=== PATIENT | male | born 2005 | race Caucasian/White ===

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

== ENCOUNTER → 2023-06-10 13:45 | Outpatient (BNVA) | payer OTHER, SELFPAY | PROVIDERS: Visit Provider Physician Assistant | DX: S61.213A Laceration without foreign body of left middle finger without damage to nail, initial encounter (principal); W31.89XA Contact with other specified machinery, initial encounter | CPT/HCPCS: 12001; 99204 ==

== ENCOUNTER → 2023-06-14 10:49 | Outpatient (BNVA) | payer OTHER, SELFPAY | PROVIDERS: Visit Provider Physician Assistant Medical | DX: S61.213A Laceration without foreign body of left middle finger without damage to nail, initial encounter (principal); W26.9XXA Contact with unspecified sharp object(s), initial encounter | CPT/HCPCS: 99213 ==

== ENCOUNTER → 2023-06-21 14:44 | Outpatient (BNVA) | payer OTHER, SELFPAY | PROVIDERS: Visit Provider Physician Assistant Medical | DX: S61.213A Laceration without foreign body of left middle finger without damage to nail, initial encounter (principal); W31.89XA Contact with other specified machinery, initial encounter | CPT/HCPCS: 99213 ==

== ENCOUNTER 2023-06-26 07:58 | Emergency (ER) | payer OTHER, SELFPAY ==
[2023-06-26 08:12] VITALS: BP 125/73; PULSE 100; RESP 18; TEMP 36.9; O2SAT 97; BMI 30.7
--- NOTE | 2023-06-26 08:22 | ED.NAVMDI ---
HPI - Nausea/Vomiting/Diarrhea General Chief complaint: Nausea/Vomiting/Diarrhea Stated complaint: vomiting diarrhea Time Seen by Provider: 06/26/23 08:12 Source: patient Mode of arrival: ambulatory History of Present Illness HPI Narrative: 18-year-old male who presents with onset diarrhea, nausea, vomiting without fever or chills and denies sick contacts. Patient does report having eaten a salad with chicken from a pizza place. since last night. no fever/chills, sick contacts....no abd pain, sounds congested. Related Data Previous Rx's Medication Instructions Recorded ondansetron 4 mg disintegrating 4 mg PO Q6H PRN nausea and 08/25/21 tablet vomiting #10 tabs cyclobenzaprine 5 mg tablet 5 mg PO TID PRN neck pain 7 days 02/13/22 #21 tabs amoxicillin 875 mg-potassium 1 tab PO BID #20 tabs 08/23/22 clavulanate 125 mg tablet ondansetron 4 mg disintegrating 4 mg PO Q8H PRN nausea and 06/26/23 tablet vomiting 4 days #10 tabs Allergies Allergy/AdvReac Type Severity Reaction Status Date / Time peanut [PEANUT] Allergy Unknown UNK Verified 03/18/22 08:31 SEAFOOD Allergy Unknown UNK Uncoded 02/22/20 17:08 SEASONAL ALLERGIES Allergy Unknown RUNNY NOSE Uncoded 02/22/20 17:08 Review of Systems Review of Systems: Pertinent positives and negatives as stated in HPI PMFSH Past Medical History Source: nursing notes reviewed Onset Date is defined in the Problem List Problems that require an onset date and time if occurred within 24 hrs of arrival to the ED Aortic Dissection and Rupture; Neurologic impairment; Cardiopulmonary Arrest; Endotracheal Intubation; Insertion or Replacement of Mechanical Circulatory Assist Device Social History Social History Alcohol intake: never Patient Tobacco Use Status: Never used Tobacco Smoked in Last 30 Days: No Use of substances other than those prescribed or required for medical reasons: No Substance Use Type: Marijuana Advance Directives: No Advance Directives Information Provided: No Physical Exam Vital Signs: Vital Signs: Last Vital Signs Temp 98.4 F 06/26/23 08:12 Pulse 100 06/26/23 08:12 Resp 18 06/26/23 08:12 BP 125/73 06/26/23 08:12 Pulse Ox 97 06/26/23 08:12 O2 Del Method Room Air 06/26/23 08:12 BMI result Body Mass Index 30.7 VITAL SIGNS: Reviewed. GENERAL: Well developed, well nourished, in no acute distress. HEAD: Normocephalic/atraumatic EYES: PERRLA, EOMI EARS: Ext canals without abnormality, TMs non-bulging and non-erythematous NOSE: Nares congestion with rhinorrhea OROPHARYNX: no oral lesions noted, posterior pharynx clear and non-erythematous without noted tonsillar enlargement/erythema/exudates NECK: Supple, no adenopathy LUNGS: Normal breath sounds. No adventitious sounds or accessory muscle use. SpO2<97> CARDIOVASCULAR: Regular rate and rhythm without noted murmurs ABDOMEN: Soft, non-tender, non-distended with bowel sounds. MUSCULOSKELETAL: No tenderness, deformities, or effusions noted on gross inspection. EXTREMITIES: No cyanosis, clubbing or edema. SKIN: Inspection of the skin reveals no rashes NEUROLOGIC: Alert and oriented x 4. Strength and sensation to light touch were grossly intact x 4. Medications Administered Discontinued Medications Generic Name Dose Route Start Last Admin Trade Name Freq PRN Reason Stop Dose Admin Ondansetron HCl 4 mg 06/26/23 08:21 06/26/23 09:07 Ondansetron Odt 4 Mg Tab.Rapdis TRANSLINGU 06/26/23 08:22 4 mg ONCE ONE Administration Medical Decision Making Medical Decision Making [facility] Narrative: 18-year-old male with history and clinical presentation, DDX: Gastroenteritis, food poisoning, no clinical suspicion for intra-abdominal infection as abdominal exam is benign, doubt urinary etiology. Patient received trans lingual Zofran with good effect and is currently tolerating oral intake, mildly feeling better and has had no further episodes of diarrhea that we would be able to send for testing. He is otherwise discharged home with instructions to follow-up with his primary care doctor and a prescription for antiemetics. Viral testing is negative. Differential Diagnosis Differential Diagnoses: The differential diagnosis associated with the presentation includes Please see the discussion above Admission/Observation Consideration of admission/observation: Escalation of care including admission/observation considered Please see the discussion above Lab Data [facility] Lab Attestation statement: I reviewed the patient's lab results. Please see the discussion above Labs: Lab Results 06/26/23 Range/Units 08:17 COVID-19 ([facility]ZEL) Negative (Negative) COVID-19 Clin Com See Note External Record Review External record reviewed: Outpatient record and Prior outpatient labs Discharge Plan Discharge Clinical Impression: Gastroenteritis Patient Disposition: Home, Self-Care Instructions: Gastroenteritis (ED), Nutrition Tips for Relief of Diarrhea (ED) Additional Instructions: 1. Use the antinausea medication to help stay well hydrated, stick to a bland diet and avoid carbonated/caffeinated/spicy or fatty foods. 2. Follow-up with your primary care doctor. Return to the ER for any worsening symptoms. Prescriptions: New ondansetron 4 mg tablet,disintegrating 4 mg PO Q8H PRN (Reason: nausea and vomiting) 4 Days Qty: 10 0RF No Action ondansetron 4 mg tablet,disintegrating 4 mg PO Q6H PRN (Reason: nausea and vomiting) Qty: 10 0RF cyclobenzaprine 5 mg tablet 5 mg PO TID PRN (Reason: neck pain) 7 Days Qty: 21 0RF amoxicillin-pot clavulanate 875-125 mg tablet 1 tab PO BID Qty: 20 0RF Referrals: Jazmyn Saunders MD [Primary Care Provider] -
[2023-06-26 08:47] LABS: COVID-19 Test Negative (Negative); IDNOW Serial# 08D9AD1C
[2023-06-26] MEDS: Ondansetron ODT 4 MG TAB.RAPDIS TRANSLINGU (09:07)
== END 2023-06-26 09:36 | disposition home or self-care (01) ==
PROVIDERS: Emergency Provider Student in an Organized Health Care Education/Training Program; PCP Pediatrics
DX: K52.9 Noninfective gastroenteritis and colitis, unspecified (principal); R11.2 Nausea with vomiting, unspecified; Z11.52 Encounter for screening for COVID-19
CPT/HCPCS: 87635; 99283; 99284

== ENCOUNTER 2023-10-11 19:37 | Emergency (ER) | payer OTHER, SELFPAY ==
--- NOTE | ~2023-10-11 | CT_ITS ---
EXAMINATION: CT HEAD WITHOUT CONTRAST CLINICAL INFORMATION: Dizziness, headache COMPARISON: None available. TECHNIQUE: Contiguous axial imaging was performed from the skull base to vertex without intravenous administration of contrast. This CT examination was performed using dose optimization techniques as appropriate, variously including the following: *Automated exposure control *Adjustment of mA and/or kV according to patient size (this includes techniques or standardized protocols for targeted exams where dose is matched to indication/reason for exam; i.e. extremities or head) *Use of iterative reconstruction technique DLP: 688 mGy-cm FINDINGS: There is no evidence of acute intracranial hemorrhage or territorial infarction. No abnormal mass-effect or midline shift is seen. Hu to white matter differentiation is well preserved. No extra-axial fluid collections are identified. The ventricles are normal in size. There is no abnormal attenuation within the brain parenchyma. The osseous structures and soft tissues are normal. Small right maxillary mucus retention cyst. The mastoid air cells are well-aerated. CT/CT head/brain wo IV con IMPRESSION: No acute intracranial pathology.
[2023-10-11 20:11] VITALS: BP 124/63; PULSE 81; RESP 14; TEMP 36.6; O2SAT 98; BMI 31.5
--- NOTE | 2023-10-11 20:13 | ED.GENADULT ---
HPI - General Adult General Chief complaint: Dizziness Stated complaint: congested lightheaded Time Seen by Provider: 10/12/23 02:05 Source: patient Mode of arrival: ambulatory Limitations: no limitations History of Present Illness HPI narrative: 18 yo male with PMH of allergies here with c/o headache, dizziness on and off for one week - no trauma no neck pain no fevers. He notes he is congested but thinks it is due to his allergies. He denies CP/SOB, no travel or procedures MD complaint: headaches, dizziness Onset (ago): day(s) (7) Location: head Radiation: non-radiation Severity: moderate Quality: aching and dull Pain Consistency: intermittent Relieving factors: none Exacerbating factors: none Associated symptoms: other (nasal congestion, dizziness) Treatments prior to arrival: none Related Data Previous Rx's ?Medication ?Instructions ?Recorded ondansetron 4 mg disintegrating 4 mg PO Q6H PRN nausea and 08/25/21 tablet vomiting #10 tabs cyclobenzaprine 5 mg tablet 5 mg PO TID PRN neck pain 7 days 02/13/22 #21 tabs amoxicillin 875 mg-potassium 1 tab PO BID #20 tabs 08/23/22 clavulanate 125 mg tablet ondansetron 4 mg disintegrating 4 mg PO Q8H PRN nausea and 06/26/23 tablet vomiting 4 days #10 tabs Allergies Allergy/AdvReac Type Severity Reaction Status Date / Time peanut [PEANUT] Allergy Unknown UNK Verified 10/11/23 20:12 SEAFOOD Allergy Unknown UNK Uncoded 10/11/23 20:12 SEASONAL ALLERGIES Allergy Unknown RUNNY NOSE Uncoded 10/11/23 20:12 Review of Systems Review of Systems: Constitutional : No Fever, No Chills, No Fatigue ENT/Mouth : No sore throat, No Rhinorrhea, pos sinus pain Eyes: No Eye Pain, No Swelling, No Redness Cardiovascular : No Chest Pain, No SOB, No Dyspnea on Exertion Respiratory : No Cough, No Sputum Gastrointestinal : No Nausea, No Vomiting, No Diarrhea, No abdominal Pain Genitourinary : No Dysuria, No Urinary Frequency, No Hematuria, Musculoskeletal : No joint pain, No Myalgias, No Joint Swelling Skin : No Skin Lesions, No rash Neuro : No Weakness, No Numbness, pos Dizziness, positive Headache Psych : No Anxiety/Panic, No Depression All other systems reviewed and are negative [facility] Past Medical History Attestation statement: The following information was validated with the patient. Source: old records reviewed Medical History Allergies Social History Social History Alcohol intake: never Patient Tobacco Use Status: Never used Tobacco Smoked in Last 30 Days: No Use of substances other than those prescribed or required for medical reasons: No Substance Use Type: Marijuana Advance Directives: No Advance Directives Information Provided: No Do you have a plan to hurt others: No Plan Physical Exam ED Vital Signs: Vital Signs - 24 hr 10/11/23 20:11 10/12/23 03:00 Temperature 97.9 F 98.6 F Pulse Rate 81 71 Respiratory Rate 14 16 Blood Pressure 124/63 124/62 Pulse Oximetry 98 98 Oxygen Delivery Method Room Air Room Air BMI result Body Mass Index 31.5 Appearance: Alert. Oriented X3. No acute distress. Eyes: Pupils equal, round and reactive to light. ENT: Pharynx normal. mild facial ttp normal TMs bilaterally Neck: Normal inspection. Neck supple. no meningeal signs CVS: Normal heart rate and rhythm. Pulses normal. Respiratory: No respiratory distress. Breath sounds normal. Abdomen: Soft and nontender. Skin: Skin warm and dry. Normal skin color. Normal skin turgor. Extremities: No lower extremity edema. No calf ttp Neuro: Oriented X 3. No motor deficit. No sensory deficit. steady gait no ataxia Course Course Course Narrative: RME performed by Loli Connelly PA-C. Patient is a 18 year old assigned male at presenting to the emergency department with dizziness, lightheadedness, and a headache. Detailed physical exam and review of systems are deferred to the incinerator plant laborer. Labs and swabs ordered. Patient placed back in the waiting room pending room availability and results. Reevaluation(s) Reevaluation #1: 227am troponin ordered but no EKG - came back positive had no CP/SOB EKG ordered and repeat troponin placed as well clinically doesn't make sense EKG normal infl markers negative drastic drop in repeat trop I suspect the 1st trop was in error I am calling the lab Reevaluation #2: lab repeated the original blood in analyzer and it came back at less than 2.7 and so they state it was analyzer error Medications Administered Discontinued Medications Generic Name Dose Route Start Last Admin Trade Name Nicky PRN Reason Stop Dose Admin Acetaminophen 650 mg 10/12/23 02:12 10/12/23 02:39 Acetaminophen 325 Mg Tablet PO 10/12/23 02:13 650 mg ONCE ONE Administration Meclizine HCl 25 mg 10/12/23 02:12 10/12/23 02:39 Meclizine Hcl 25 Mg Tablet PO 10/12/23 02:13 25 mg ONCE ONE Administration Medical Decision Making Medical Decision Making [facility] Narrative: 18 yo male with PMH of allergies here with c/o sinus congestion but also now has headaches and intermittent dizziness no neck pain no fevers, normal neuro exam no ataxia he will get labs, swabs, CT head for mass/deep sinus infection Differential Diagnosis Differential Diagnoses: The differential diagnosis associated with the presentation includes tension headache, vertigo, sinusitis Admission/Observation Consideration of admission/observation: Escalation of care including admission/observation considered work up negative trop flat x 2 CT head negative no ataxia Lab Data [facility] Lab Attestation statement: I reviewed the patient's lab results. 10/11/23 20:24 10/11/23 20:24 Labs: Lab Results 10/11/23 10/12/23 10/12/23 Range/Units 20:24 01:05 02:45 WBC 9.7 (4.8-10.8) X10*3/uL RBC 5.05 (4.60-5.80) X10*6/uL Hgb 15.3 (14.0-18.0) g/dl Hct 42.8 (42.0-52.0) % MCV 84.8 (80.0-98.0) fL MCH 30.3 (27.0-33.0) pg MCHC 35.7 (31.0-36.0) g/dl RDW 11.9 (11.0-16.0) % Plt Count 251 (160-400) X10*3/uL MPV 9.3 L (9.4-12.4) fL Immature Gran % (Auto) 0.2 (0.0-0.4) % Neut % (Auto) 53.5 (45-73) % Lymph % (Auto) 23.0 (20-40) % [place] % (Auto) 7.6 (2-11) % Eos % (Auto) 15.0 H (0-4) % Baso % (Auto) 0.7 (0-2) % Lymph # (Auto) 2.2 (1.2-4.9) X10*3/uL [place] # (Auto) 0.7 (0.1-1.2) X10*3/uL Eos # (Auto) 1.5 H (0.0-0.4) X10*3/uL Baso # (Auto) 0.1 (0.0-0.2) X10*3/uL Abs Immat Gran (auto) 0.02 (0.00-0.03) X10*3/uL Absolute Neuts (auto) 5.2 (2.0-8.3) x10*3/uL Absolute Nucleated RBC 0.000 (0.0-0.012) X10*3/uL Nucleated RBC % (auto) 0.0 (0.0-0.2) /100WBC ESR 2 (0-15) MM/HR Sodium 143 (135-145) mmol/L Potassium 3.6 (3.3-5.1) mmol/L Chloride 108 (96-108) mmol/L Carbon Dioxide 26 (22-29) mmol/L Anion Gap 13 (12-20) BUN 10 (9-16) mg/dL Creatinine 0.99 (0.5-1.4) mg/dL Estim Creat Clear Calc 136.6 Estimated GFR > 60 Random Glucose 95 (60-115) mg/dL Calcium 9.9 (8.4-10.2) mg/dL Magnesium 2.2 (1.6-2.6) mg/dL Total Bilirubin 0.7 (0.0-1.0) mg/dL AST 21 (5-37) U/L ALT 31 (0-40) U/L Alkaline Phosphatase 69 (39-117) U/L Troponin I High Sens < 2.7 < 2.7 (<3.5-35.0) ng/L C-Reactive Protein < 0.10 (< or = 0.50) mg/dL Total Protein 7.9 (6.5-8.0) g/dL Albumin 4.3 (3.5-5.0) g/dL Influenza Type A (PCR) NEGATIVE (Negative) Influenza Type B (PCR) NEGATIVE (Negative) RSV RNA Qual (PCR) NEGATIVE (Negative) SARS-CoV-2 RNA (RT-PCR) NEGATIVE (Negative) S. pyogenes GrpA JOSHUA Negative (Negative) Independent Interpretation I performed an independent interpretation of an: EKG and CT Scan (normal ) Interpretation: Rate: 68 Rhythm: NSR [place]: normal Normal P waves. Normal ALEXIS. Normal QRS complex. ST T wave : inverted t wave V1, no KHALIDA qTC: 404 prior studies: no acute ischemia The study has been interpreted contemporaneously by me. . Radiology Impression Discussion of test interpretation with radiology: I have reviewed the radiologist's reading. Independent Historian Clinical information obtained from an independent historian. History obtained from or confirmed by: Spouse Prescription Management I considered prescription management with: Antibiotic Discharge Plan Discharge Clinical Impression: Dizziness Patient Disposition: Home, Self-Care Instructions: Dizziness (ED) Additional Instructions: ekg normal heart markers normal x 2 CT head normal follow up with your doctor stay hydrated. return for any worsening symptoms or concerns. Prescriptions: No Action ondansetron 4 mg tablet,disintegrating 4 mg PO Q6H PRN (Reason: nausea and vomiting) Qty: 10 0RF cyclobenzaprine 5 mg tablet 5 mg PO TID PRN (Reason: neck pain) 7 Days Qty: 21 0RF amoxicillin-pot clavulanate 875-125 mg tablet 1 tab PO BID Qty: 20 0RF ondansetron 4 mg tablet,disintegrating 4 mg PO Q8H PRN (Reason: nausea and vomiting) 4 Days Qty: 10 0RF Stand Alone Forms: Work/School Release Print Language: Filipino
[2023-10-11 20:37] LABS: MANUAL DIFF FLAG NO
[2023-10-11 20:38] LABS: Basophils Absolute Auto 0.1 X10*3/uL (0.0-0.2); Basophils Percent Auto 0.7 % (0-2); Eosinophils Absolute Auto 1.5 X10*3/uL (0.0-0.4); Hematocrit 42.8 % (42.0-52.0); Hemoglobin 15.3 g/dl (14.0-18.0); Imm Gran Abs Auto 0.02 X10*3/uL (0.00-0.03); Imm Gran Pct Auto 0.2 % (0.0-0.4); Lymphocytes Absolute Auto 2.2 X10*3/uL (1.2-4.9); Mean Corpuscular HGB Conc 35.7 g/dl (31.0-36.0); Mean Corpuscular Hemoglobin 30.3 pg (27.0-33.0); Mean Corpuscular Volume 84.8 fL (80.0-98.0); Mean Platelet Volume 9.3 fL (9.4-12.4); Monocytes Absolute Auto 0.7 X10*3/uL (0.1-1.2); Monocytes Percent Auto 7.6 % (2-11); Neutrophils Absolute Auto 5.2 x10*3/uL (2.0-8.3); Neutrophils Percent Auto 53.5 % (45-73); Platelet Count 251 X10*3/uL (160-400); Red Blood Count 5.05 X10*6/uL (4.60-5.80); Red Cell Distribution Width 11.9 % (11.0-16.0); White Blood Count 9.7 X10*3/uL (4.8-10.8)
[2023-10-11 20:53] LABS: Alanine Aminotransferase 31 U/L (0-40); Albumin Level 4.3 g/dL (3.5-5.0); Alkaline Phosphatase 69 U/L (39-117); Anion Gap 13 (12-20); Aspartate Amino Transferase 21 U/L (5-37); Bilirubin Total 0.7 mg/dL (0.0-1.0); Blood Urea Nitrogen 10 mg/dL (9-16); Calcium 9.9 mg/dL (8.4-10.2); Carbon Dioxide 26 mmol/L (22-29); Chloride 108 mmol/L (96-108); Creatinine Clr Calc Pharmacy 136.6; Estimated Glomerular Filt Rate > 60; Glucose Random 95 mg/dL (60-115); Magnesium 2.2 mg/dL (1.6-2.6); Potassium 3.6 mmol/L (3.3-5.1); Sodium 143 mmol/L (135-145); Total Protein 7.9 g/dL (6.5-8.0)
[2023-10-11 21:15] LABS: Influenza A PCR NEGATIVE (Negative); Influenza B PCR NEGATIVE (Negative); Resp Syncy Virus RNA Qual PCR NEGATIVE (Negative); SARS COV2 PCR INHOUSE NEGATIVE (Negative)
[2023-10-12 01:31] LABS: IDNOW Serial# 08D9AD1C; Strep A Nucleic Acid Negative (Negative)
--- NOTE | 2023-10-12 02:25 | ECG_ITS ---
Test Reason : DIZZINESS Blood Pressure : / mmHG Vent. Rate : 068 BPM Atrial Rate : 068 BPM P-R Int : 134 ms QRS Dur : 114 ms QT Int : 380 ms P-R-T Axes : 051 024 019 degrees QTc Int : 404 ms Normal sinus rhythm Normal ECG When compared with ECG of 25-AUG-2021 01:37, Vent. rate has decreased BY 33 BPM Referred By: Leigha Meza Electronically Signed By:Theodore Xie
[2023-10-12] MEDS: Meclizine HCl 25 MG TABLET PO (02:39)
[2023-10-12] MEDS: Acetaminophen 325 MG TABLET 650 MG PO (02:39)
[2023-10-12 02:48] LABS: C Reactive Protein < 0.10 mg/dL (< or = 0.50)
[2023-10-12 03:00] VITALS: BP 124/62; PULSE 71; RESP 16; TEMP 37; O2SAT 98
[2023-10-12 03:09] LABS: Erythrocyte Sedimentation Rate 2 MM/HR (0-15)
[2023-10-12 03:13] LABS: Troponin-I High Sensitivity < 2.7 ng/L (<3.5-35.0)
[2023-10-12 03:59] LABS: Troponin-I High Sensitivity < 2.7 ng/L (<3.5-35.0)
[2023-10-12 04:59] VITALS: BP 110/66; PULSE 67; RESP 14; TEMP 36.8; O2SAT 99
== END 2023-10-12 05:00 | disposition home or self-care (01) ==
PROVIDERS: Emergency Medicine; Physician Assistant Medical; Emergency Provider Emergency Medicine; PCP Pediatrics
DX: R42 Dizziness and giddiness (principal); R51.9 Headache, unspecified; Z03.818 Encounter for observation for suspected exposure to other biological agents ruled out
CPT/HCPCS: 0241U; 36415; 70450; 80053; 83735; 84484; 85025; 85652; 86140; 87651; 93005; 99284; 99285

== ENCOUNTER → 2023-10-12 02:25 | Outpatient (BNV) | payer OTHER, SELFPAY | PROVIDERS: Emergency Provider Emergency Medicine; PCP Pediatrics; Visit Provider Internal Medicine Cardiovascular Disease | DX: R42 Dizziness and giddiness (principal) | CPT/HCPCS: 93010 ==

== ENCOUNTER 2024-06-05 07:43 | Emergency (ER) | payer OTHER, SELFPAY ==
[2024-06-05 07:45] VITALS: BP 125/74; PULSE 94; RESP 20; TEMP 37.5; O2SAT 95; BMI 31.9
--- NOTE | 2024-06-05 08:57 | PC.NURSE ---
patient a&ox3, rr equal/non labored- pt speaking in full sentences, swab obtaine, plan of care ongoing
[2024-06-05 09:14] LABS: Influenza A PCR NEGATIVE (Negative); Influenza B PCR NEGATIVE (Negative); Resp Syncy Virus RNA Qual PCR NEGATIVE (Negative); SARS COV2 PCR INHOUSE POSITIVE (Negative)
[2024-06-05 09:26] LABS: IDNOW Serial# 58CA691E; Strep A Nucleic Acid Negative (Negative)
--- NOTE | 2024-06-05 09:40 | ED_ITS ---
HPI - URI/Sore Throat General Chief Complaint: Upper Respiratory Symptoms Stated Complaint: Headache Bodyache Time Seen by Provider: 06/05/24 09:12 Source: patient Mode of arrival: ambulatory Limitations: no limitations History of Present Illness ED Provider: fabiola horn pa-c HPI Narrative: 19 year old male with no significant pmhx presents to the ED today for evaluation of headache, myalgias, and nasal congestion x2 days. He states he was recently in [place] with family for the holiday staying in a hotel. Denies any known sick contacts. Vaccinations are UTD. Denies fever, chills, sore throat, cough, sputum production, N/V, abd pain. Related Data Previous Rx's ?Medication ?Instructions ?Recorded ondansetron 4 mg disintegrating 4 mg PO Q6H PRN nausea and 08/25/21 tablet vomiting #10 tabs cyclobenzaprine 5 mg tablet 5 mg PO TID PRN neck pain 7 days 02/13/22 #21 tabs amoxicillin 875 mg-potassium 1 tab PO BID #20 tabs 08/23/22 clavulanate 125 mg tablet ondansetron 4 mg disintegrating 4 mg PO Q8H PRN nausea and 06/26/23 tablet vomiting 4 days #10 tabs Allergies Allergy/AdvReac Type Severity Reaction Status Date / Time peanut [PEANUT] Allergy Unknown UNK Verified 06/05/24 07:45 SEAFOOD Allergy Unknown UNK Uncoded 06/05/24 07:45 SEASONAL ALLERGIES Allergy Unknown RUNNY NOSE Uncoded 06/05/24 07:45 Review of Systems Review of Systems: Constitutional: No fever, chills, fatigue, night sweats, weight changes ENT/Mouth: No ear pain, hearing loss, sinus pain, rhinorrhea, sore throat, +nasal congestion Eyes: No eye pain, swelling, redness, vision changes, discharge Cardio: No chest pain, palpitations, SINGLETON, orthopnea, peripheral edema Pulm: No SOB, cough, sputum, wheezing, dyspnea, hemoptysis, cough GI: No nausea, vomiting, hematemesis, abdominal pain, diarrhea, constipation, hematochezia, melena : No irregular bleeding, dysuria, frequency, urgency, hesitancy, hematuria, flank pain, urinary flow changes, urinary incontinence or retention MSK: No back pain, neck pain, joint pain, +myalgias Skin: No lesions, rashes Neuro: No weakness, numbness, paresthesias, LOC, dizziness, +headache Psych: No anxiety/panic, depression, SI/HI, AH/VH All other systems reviewed and are negative. [facility] Past Medical History Attestation statement: The following information was validated with the patient. Source: old records reviewed and nursing notes reviewed Medical History Allergies Social History Social History Alcohol intake: never Patient Tobacco Use Status: Never used Tobacco Substance Use Type: Marijuana Advance Directives: No Advance Directives Information Provided: Yes Physical Exam Vital Signs: Vital Signs: Last Vital Signs Temp 99.5 F 06/05/24 07:45 Pulse 94 06/05/24 07:45 Resp 20 06/05/24 07:45 BP 125/74 06/05/24 07:45 Pulse Ox 95 06/05/24 07:45 O2 Del Method Room Air 06/05/24 07:45 BMI result Body Mass Index 31.9 vital signs stable, afebrile, not hypoxic General: Well appearing, in no acute distress. Skin: Warm, dry, intact. No rashes or lesions. Head: Normocephalic, atraumatic. EENT: Hearing is intact b/l. Conjunctiva clear. PERRLA. EOM intact. Moist mucous membranes.? Posterior oropharynx WNL Neck: Supple without LAD Cardiac: Chest wall symmetric. RRR Lungs: Normal respiratory effort without accessory muscle use. CTA bilaterally. No rales, rhonchi, or wheezes.? Abdomen: Soft, non-tender, non-distended. No rebound tenderness or guarding. Positive BS x4. Back: No midline spinous or paraspinal tenderness. No step off deformity. Ext: Upper and lower extremities atraumatic, without tenderness, deformity, swelling or erythema. Full ROM throughout. Neuro: AOx3. Normal speech. Ambulating with steady gait. Psych: Appropriate mood and affect. Responds appropriately to questions. Course Course Course Narrative: Patient tested positive for COVID. Educated on symptomatic treatment. He was given Toradol for headache and body aches in the ED. Patient has remained stable throughout ED visit today. Discussed worrisome signs and symptoms and when to return to the ED. All questions answered at this time. Patient is agreeable with disposition and stable for discharge. Medical Decision Making Medical Decision Making [facility] Narrative: 19 year old male with no significant pmhx presents to the ED today for evaluation of headache, myalgias, and nasal congestion x2 days. Vital signs stable. Afebrile. Not hypoxic. He is nontoxic-appearing and in no acute distress. Physical exam benign. Differential diagnosis includes viral syndrome, strep throat, headache, migraine, pneumonia, bronchitis. 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 Plan for viral and strep swabs, pain control, re-evaluation. Chest x-ray not warranted at this time. Differential Diagnosis Differential Diagnoses: The differential diagnosis associated with the presentation includes As above Admission/Observation Not indicated Lab Data [facility] Lab Attestation statement: I reviewed the patient's lab results. As above Labs: Lab Results 06/05/24 06/05/24 Range/Units 07:55 09:12 Influenza Type A (PCR) NEGATIVE (Negative) Influenza Type B (PCR) NEGATIVE (Negative) RSV RNA Qual (PCR) NEGATIVE (Negative) SARS-CoV-2 RNA (RT-PCR) POSITIVE A (Negative) S. pyogenes GrpA JOSHUA Negative (Negative) External Record Review External record reviewed: Inpatient record Prescription Management I considered prescription management with: Pain Medication (Tylenol, Motrin) Social Determinants Patient?s care significantly limited by Social Determinants of Health including: Other Social Determinant of Health Critical Care Time Critical Care Time Critical Care Time: No Discharge Plan Discharge Clinical Impression: COVID-19 Patient Disposition: Home, Self-Care Instructions: COVID-19 (Coronavirus Disease 2019) (ED) Additional Instructions: Today you tested positive for COVID-19.? Take Ibuprofen or Tylenol as needed for fevers or body aches.? Quarantine for 5 days and ensure you wear a mask. After 5 days you should wear a mask for 5 days after that.? Practice social distancing and good hand hygiene. Drink plenty of fluids. Follow-up with your primary care provider this week. Return to the emergency department with new or worsening symptoms. In case of emergency call 911 You can purchase a pulse oximeter from your local pharmacy or grocery store, and monitor your oxygen saturation if it goes below 94% you should return to the emergency department for further evaluation. Prescriptions: No Action ondansetron 4 mg tablet,disintegrating 4 mg PO Q6H PRN (Reason: nausea and vomiting) Qty: 10 0RF cyclobenzaprine 5 mg tablet 5 mg PO TID PRN (Reason: neck pain) 7 Days Qty: 21 0RF amoxicillin-pot clavulanate 875-125 mg tablet 1 tab PO BID Qty: 20 0RF ondansetron 4 mg tablet,disintegrating 4 mg PO Q8H PRN (Reason: nausea and vomiting) 4 Days Qty: 10 0RF Stand Alone Forms: Work/School Release Print Language: Spanish
[2024-06-05] MEDS: Ketorolac Tromethamine 30 MG/ML VIAL IM (09:55)
[2024-06-05 10:00] VITALS: BP 128/72; PULSE 92; RESP 20; TEMP 37.2; O2SAT 95
--- NOTE | 2024-06-05 10:00 | PC.NURSE ---
pt medicated for 10 generalized pain
== END 2024-06-05 10:02 | disposition home or self-care (01) ==
PROVIDERS: Physician Assistant Medical; Emergency Provider Emergency Medicine
DX: U07.1 COVID-19 (principal); R09.81 Nasal congestion; R51.9 Headache, unspecified; M79.10 Myalgia, unspecified site
CPT/HCPCS: 0241U; 87651; 96372; 99283; 99284; J1885

== ENCOUNTER 2024-08-17 15:15 | Emergency (ER) | payer OTHER, SELFPAY ==
[2024-08-17 15:30] VITALS: BP 132/60; PULSE 118; O2SAT 100
--- OUTSIDE RECORDS SUMMARY | 2024-08-17 19:28 | XMS_ITS | Encounter Summary ---
Author Organization [facility] Address [address] [place] [phone] Phone Care Team Providers Care Wire Mesh Gate Assembler Name Role Phone Jazmyn Saunders MD Primary Care Provider [phone] Encounter Details Date Type Department Care Team (Late st Contact Info) Description 10/24/2013 Documentation [facility] [place] [address] [place] [address] Family Medicine, Physician [address] [place] [address] Social History Tobacco Use Types Packs/Day Years Used Date Smoking Tobacco: Never Assessed Sex and Gender Information Value Date Recorded Sex Assigned at Not on file Legal Sex Male 5:14 PM EDT Gender Identity Male 07/08/2021 10:24 AM EST Sexual Orientation Straight 07/08/2021 10 :53 AM EST documented as of this encounter Plan of Treatment Not on file documented as of this encounter Visit Diagnoses Not on filedocumented in this encounter Care Teams Wire Mesh Gate Assembler Relationship Specialty Start Date End Date Jazmyn Saunders MD [address] [place] [id number] PCP - General 01/15/17 04/11/24 documented as of this encounter
--- OUTSIDE RECORDS SUMMARY | 2024-08-17 19:28 | XMS_ITS | Encounter Summary ---
Author Organization [facility] Address [address] [place] [address] Phone Care Team Providers Care Meteorologist Liaison Name Role Phone Jamzyn Saunders MD Primary Care Provider [phone] Encounter Details Date Type Department Care Team (Late st Contact Info) Description 01/21/2017 Conversion Encounter [facility] [address] [place] [address] Social History Tobacco Use Types Packs/Day Years Used Date Smoking Tobacco: Never Comments:Never smoker Sex and Gender Information Value Date Recorded Sex Assigned at Not on file Legal Sex Male 5:14 PM EDT Gender Identity Male 07/08/2021 10:24 AM EST Sexual Orientation Straight 07/08/2021 10 :53 AM EST documented as of this encounter Plan of Treatment Not on file documented as of this encounter Visit Diagnoses Not on filedocumented in this encounter Care Teams Meteorologist Liaison Relationship Specialty Start Date End Date Jazmyn Saunders MD [address] [place] [address] PCP - General 01/15/17 04/11/24 documented as of this encounter
--- OUTSIDE RECORDS SUMMARY | 2024-08-17 19:28 | XMS_ITS | Encounter Summary ---
Author Organization [facility] Address [address] [place] [address] Phone Care Team Providers Care Bathroom Tiling Professional Name Role Phone Jazmyn Saunders MD Primary Care Provider Encounter Details Date Type Department Care Team (Late st Contact Info) Description 04/09/2010 Documentation [facility] [place] [address] [place] [address] Family Medicine, Physician [address] [place] [address] Social History Tobacco Use Types Packs/Day Years [...] on filedocumented in this encounter Care Teams Bathroom Tiling Professional Relationship Specialty Start Date End Date Jazmyn Saunders MD [address] [place] [id number] PCP - General 01/15/17 04/11/24 documented as of this encounter
--- OUTSIDE RECORDS SUMMARY | 2024-08-17 19:28 | XMS_ITS | Encounter Summary ---
Author Organization [facility] Address [address] [place] [address] Phone Care Team Providers Care Rug Designer Name Role Phone Jazmyn Saunders MD Primary Care Provider Encounter Details Date Type Department Care Team (Late st Contact Info) Description 08/24/2016 [place] [facility] [place] [address] [place] [address] Family Medicine, Physician [address] [place] [address] Social History Tobacco Use Types Packs/Day Years [...] on filedocumented in this encounter Care Teams Rug Designer Relationship Specialty Start Date End Date Jazmyn Saunders MD [address] [place] [id number] PCP - General 01/15/17 04/11/24 documented as of this encounter
--- OUTSIDE RECORDS SUMMARY | 2024-08-17 19:28 | XMS_ITS | Encounter Summary ---
Author Organization [facility] Address [address] [place] [phone] Phone Care Team Providers Care Molecular Pathologist Name Role Phone Jazmyn Saunders MD Primary Care Provider [phone] Encounter Details Date Type Department Care Team (Late st Contact Info) Description 10/27/2016 Documentation [facility] [place] [address] [place] [address] Family Medicine, Physician [address] [place] [address] Social History Tobacco Use Types Packs/Day Years [...] on filedocumented in this encounter Care Teams Molecular Pathologist Relationship Specialty Start Date End Date Jazmyn Saunders MD [address] [place] [id number] PCP - General 01/15/17 04/11/24 documented as of this encounter
--- OUTSIDE RECORDS SUMMARY | 2024-08-17 19:28 | XMS_ITS | Continuity of Care Document ---
Author Organization [facility] Address [address] [place] [phone]- Care Team Providers Care Concierge Name Role Phone Nicky SANDOVAL, Jazmyn Ahn Primary Care Physician Encounter [facility] [place] Date(s): 06/29/24 - 07/29/24 [facility] [address] [place] [id number] Encounter Type: Triage Allergies, Adverse Reactions, Alerts Substance Criticality Severity Reaction Reaction Severity Status shellfish Active Nuts Active Other Food Allergy lettuce A ctive Soy Products Active egg-containing compound Resolved Celery Active Immunizations Given and Recorded Vaccine Date Status Refusal Reason influenza virus vaccine, inactivated 04/10/20 Give n Medications Advair HFA 230 mcg / 21 mcg 2 puffs, Inhalation, 2 times a day, rinse mouth and throat after use use with spacer j45.40, # 3 each, 3 Refills, Maintenance, 07/21/24 8:54:00 AM EST, Aerosol, [id number], Partial fill upon patient request if the prescription is for a schedule II opioid drug., 2 puffs Inhalation 2 times a da y,Instr:rinse mouth and throat after use; use with spacer j45.40, 175.3, cm, 02/05/23 10:46:00 EDT,Height Start Date: 07/21/24 Status: Ordered Quantity: 3.0 Unit: each Repeat number: 4 Aerochamber See Instructions, # 1 each, Refills 0, Tot. Refills 0, Maintenance, use with inhaler, 11/22/20 10:37:00 AM EDT, Compound, 175.6, cm, 11/22/20 8:31:00 EDT, Height, 80.7, kg, 11/22/20 8:31:00 EDT, Dry Weight Start Date: 11/22/20 Status: Ordered Quantity: 1.0 Unit: each Repeat number: 1 Aerochamber See Instructions, # 1 each, Refills 1, Tot. Refills 1, Maintenance, use with spacer, 04/15/22 9:08:00 AM EST, Supply, 175.3, cm, 04/15/22 8:52:00 EST, Height, 85.6, kg, 04/15/22 8:52:00 EST, Dry Weight Start Date: 04/15/22 Status: Ordered Quantity: 1.0 Unit: each Repeat number: 2 EpiPen 2-Raymon 0.3 mg injectable kit See Instructions, PRN severe allergic reaction, Intramuscular Once repeat dose after 15 minutes if necessary, # 1 each, 0 Refills, Maintenance, 02/04/15 1:06:42 PM EDT, [id number] Start Date: 02/04/15 Status: Ordered Quantity: 1.0 Unit: each Repeat number: 1 fluticasone 50 mcg/inh nasal spray 1 sprays, Nares, Both, 2 times a day, # 16 Gm, 5 Refills, Maintenance, 02/05/23 11:56:00 AM EDT, [place], [id number], Partial fill upon patient request if the prescription is for a schedule II opioid drug., 1 sprays Nares, Both 2 times a day, 175.3, cm, 02/05/23 10:46:00 EDT, Height, 85.6, kg, 04/15/22 8:52:00 EST, Dry Weight Start Date: 02/05/23 Status: Ordered Quantity: 16.0 Unit: g Repeat number: 6 hydrOXYzine hydrochloride 25 mg oral tablet 1 tablet = 25 mg, By Mouth, Daily at bedtime, # 30 tablet, 3 Refills, Maintenance, 10/23/15 4:47:49 PM EDT, Tablet, [facility] [id number] Start Date: 10/23/15 Status: Ordered Quantity: 30.0 Unit: tablet Repeat number: 4 [facility] VORTEX CHAMBER OR EQUIVALENT, See Instructions, # 1 each, Refills 0, Tot. Refills 0, Maintenance, USE WITH INHALERS, 02/04/15 1:07:56 PM EDT, Compound Start Date: 02/04/15 Status: Ordered Quantity: 1.0 Unit: each Repeat number: 1 montelukast 10 mg oral tablet 10 mg, 1, tablet, By Mouth, Daily, # 30 tablet, Refills 11, Tot. Refills 11, Maintenance, 02/05/23 11:56:00 AM EDT, Route to Pharmacy Electronically, [id number], 175.3, cm, 02/05/23 10:46:00 EDT, Height, 85.6, kg, 04/15/22 8:52:00 EST, Dry Weight Start Date: 02/05/23 Status: Ordered Quantity: 30.0 Unit: tablet Repeat number: 12 Nasacort Allergy 24HR 55 mcg/inh nasal spray 2 sprays, Nares, Both, Daily, # 1 each, 2 Refills, Maintenance, 03/24/19 11:50:55 AM EDT, [id number], 2 sprays Nares, Both Daily Start Date: 03/24/19 Status: Ordered Quantity: 1.0 Unit: each Repeat number: 3 Ventolin HFA 108 mcg/inh inhalation aerosol with adapter 2-6 PUFFS, Inhalation, Every 4 hours, WITH SPACER., # 8 Gm, 2 Refills, Maintenance, 06/30/24 1:44:00PM EST, [id number], j45.40, 175.3, cm, 02/05/23 10:46:00 EDT, Height Start Date: 06/30/24 Status: Ordered Quantity: 8.0 Unit: g Repeat number: 3 Problem List Condition Confirmation Course Effective Dates Status H ealth Status Informant Abrasion Confirmed Active Allergic rhinitis due to allergen Confirmed Active Chronic rhinosinusitis Confirmed Active Eczema Confirmed Active SHAHANA Confirmed Active Asthma, severe persistent, well-controlled Confirmed Active Social History Social History Type Response Smoking Status Never (less than 100 in lifetime); Tobacco user in household: No entered on: 07/08/18 Sex Sex Representation Male (finding) Patient Care team information Care Team Personnel Name: Jazmyn Blackman RN Position: [facility] Nurse Member Role: Primary Care Nurse Name: Jazmyn Saunders MD Position: [facility] Physician - Pediatrics Member Role: PCP Address: [address] [place] [address] [facility] [address] Telecom: Care Team Related Persons Name: RAMYA SELLERS Name: WM SELLERS Name: MARY SELLERS Insurance Providers Guarantor name: RAMYA SELLERS Health Plan Information #: 1 Payer: [employer] Member Number: NA Policy Number: NA Group Number: [id number]
--- OUTSIDE RECORDS SUMMARY | 2024-08-17 19:28 | XMS_ITS | Encounter Summary ---
Author Organization [facility] Address [address] [place] [address] Phone Care Team Providers Care Guest House Manager Name Role Phone Jazmyn Saunders MD Primary Care Provider Encounter Details Date Type Department Care Team (Late st Contact Info) Description 07/03/2016 Documentation [facility] [place] Family Medicine [address] [place] [address] Family Medicine, Physician [address] [place] [address] Social History Tobacco Use Types Packs/Day Years [...] on filedocumented in this encounter Care Teams Guest House Manager Relationship Specialty Start Date End Date Jazmyn Saunders MD [address] [place] [phone] PCP - General 01/15/17 04/11/24 documented as of this encounter
--- OUTSIDE RECORDS SUMMARY | 2024-08-17 19:28 | XMS_ITS | Encounter Summary ---
Author Organization [facility] Address [address] [place] [address] Phone Care Team Providers Care Manager Of Sustainability Name Role Phone Jazymn Saunders MD Primary Care Provider [phone] Reason for Visit * Reason Comments Med Refill Encounter Details Date Type Department Care Team (Late st Contact Info) Description 04/03/2020 Refill [facility] [place] [address] [place] [address] Berny Mata MD [address] [place] [address] Lymphadenopathy, submental; Chronic seasonal allergic rhinitis due to pollen Social History Tobacco Use Types Packs/Day Years Used Date Smoking Tobacco: Never Smokeless Tobacco: Never Comments:Never smoker Alcohol Use Standard Drinks/Week Comments Never 0 (1 standard drink = 0.6 oz pur e alcohol) Hunger/Food Answer Date Recorded No 03/02/2020 Stable Housing Answer Date Recorded No 03/02/2020 Transportation Concerns Answer Date Rec orded No 03/02/2020 Hazards in Home Answer Date Recorded No 10/07/2018 Financing Utilities Answer Date Recorde d No 10/07/2018 Safety at Home Answer Date Recorded No 10/07/2018 Outside Support Answer Date Recorded No 10/07/2018 Understanding Health Concerns Answer Da te Recorded No 10/07/2018 Financing Health Concerns Answer Date R ecorded No 10/07/2018 Missing School or Work Answer Date Neptali rded No 10/07/2018 Sex and Gender Information Value Date Recorded Sex Assigned at Not on file Legal Sex Male 5:14 PM EDT Gender Identity Male 07/08/2021 10:24 AM EST Sexual Orientation Straight 07/08/2021 10 :53 AM EST documented as of this encounter Miscellaneous Notes * Telephone Encounter - Jazmyn Saunders MD - 04/03/2020 12:12 PM EDT Script sent. PPP * Telephone Encounter - Nicole Kenny LPN - 04/03/2020 10:04 AM EDT Refill request for cetirizine. Last PE 12/27/19/JOD documented in this encounter Plan of Treatment Not on file documented as of this encounter Visit Diagnoses Diagnosis Lymphadenopathy, submental Chronic seasonal allergic rhinitis due to pollen documented in this encounter Care Teams Manager Of Sustainability Relationship Specialty Start Date End Date Jazmyn Saunders MD [address] [place] [address] DARREL Farmer [id number] PCP - General 01/15/17 04/11/24 documented as of this encounter
--- OUTSIDE RECORDS SUMMARY | 2024-08-17 19:28 | XMS_ITS | Encounter Summary ---
Author Organization [facility] Address [address] [place] [address] Phone Care Team Providers Care Garbage Collector Driver Name Role Phone Jazmyn Saunders MD Primary Care Provider [phone] Encounter Details Date Type Department Care Team (Late st Contact Info) Description 08/27/2010 Documentation [facility] [place] [address] [place] [address] Family Medicine, Physician [address] [place] [address] Social History Tobacco Use Types Packs/Day Years [...] on filedocumented in this encounter Care Teams Garbage Collector Driver Relationship Specialty Start Date End Date Jazmyn Saunders MD [address] [place] [phone] PCP - General 01/15/17 04/11/24 documented as of this encounter
--- OUTSIDE RECORDS SUMMARY | 2024-08-17 19:28 | XMS_ITS | Encounter Summary ---
Author Organization [facility] Address [address] [place] [address] Phone Care Team Providers Care Expeditionary Fighting Vehicle Crewman Name Role Phone Jazmyn Saunders MD Primary Care Provider [phone] Encounter Details Date Type Department Care Team (Late st Contact Info) Description 08/09/2010 Documentation [facility] [place] [address] [place] [address] Family Medicine, Physician [address] [place] [address] Social History Tobacco Use Types Packs/Day Years [...] on filedocumented in this encounter Care Teams Expeditionary Fighting Vehicle Crewman Relationship Specialty Start Date End Date Jazmyn Saunders MD [address] [place] [phone] PCP - General 01/15/17 04/11/24 documented as of this encounter
--- OUTSIDE RECORDS SUMMARY | 2024-08-17 19:28 | XMS_ITS | Encounter Summary ---
Author Organization [facility] Address [address] [place] [address] Phone Care Team Providers Care Flight Technician Name Role Phone Jazmyn Saunders MD Primary Care Provider Encounter Details Date Type Department Care Team (Late st Contact Info) Description 01/23/2016 Documentation [facility] [place] Family Medicine [address] [place] [address] Family Medicine, Physician [address] [place] [address] Social History Tobacco Use Types Packs/Day Years [...] on filedocumented in this encounter Care Teams Flight Technician Relationship Specialty Start Date End Date Jazmyn Saunders MD [address] [place] [phone] PCP - General 01/15/17 04/11/24 documented as of this encounter
--- OUTSIDE RECORDS SUMMARY | 2024-08-17 19:28 | XMS_ITS | Encounter Summary ---
Author Organization [facility] Address [address] [place] [address] Phone Care Team Providers Care Analog Ic Design Architect Name Role Phone Jazmyn Saunders MD Primary Care Provider Encounter Details Date Type Department Care Team (Late st Contact Info) Description 03/26/2010 Documentation [facility] [place] Family Medicine [address] [place] [address] Family Medicine, Physician [address] [place] [address] Social History Tobacco Use Types Packs/Day Years [...] on filedocumented in this encounter Care Teams Analog Ic Design Architect Relationship Specialty Start Date End Date Jazmyn Saunders MD [address] [place] [phone] PCP - General 01/15/17 04/11/24 documented as of this encounter
--- OUTSIDE RECORDS SUMMARY | 2024-08-17 19:28 | XMS_ITS | Encounter Summary ---
Author Organization [facility] Address [address] [place] [address] Phone Care Team Providers Care Grip Boss Name Role Phone Unavailable Primary Care Provider Unavailabl e Reason for Visit * Reason Comments Med Refill Encounter Details Date Type Department Care Team (Late st Contact Info) Description 08/14/2024 Refill [facility] [place] [address] [place] [address] Caitie Hutchinson NP [address] [place] [address] Herpes labialis Social History Tobacco Use Types Packs/Day Years Used Date Smoking Tobacco: Never Smokeless Tobacco: Never Comments:Never smoker Alcohol Use Standard Drinks/Week Comments Never 0 (1 standard drink = 0.6 oz pur e alcohol) Hunger/Food Answer Date Recorded In the last 12 months, did y ou or your family ever eat less than you felt you should because there wasn't enough money for food? No 12/16/2023 Stable Housing Answer Date Recorded Are you worried that in the next 2 months you may not have stable housing? No 12/16/2023 Transportation Concerns Answer Date Rec orded In the last 12 months, have you or your family ever had to go without healthcare because you didn't have a way to get there? No 12/16/2023 Hazards in Home Answer Date Recorded Think about the place you li ve. Do you have problems with any of the following? Pests (mice or roaches), mold, no/not working smoke detectors, water leaks, no window guards. No 2023 Financing Utilities Answer Date Recorde d In the last 12 months, has t he electric, gas, oil, or water company threatened to shut off your services in your home? No 12/16/2023 Safety at Home Answer Date Recorded Are you or your family worried about feeling saf e in your home? No 12/16/2023 Outside Support Answer Date Recorded Do you feel that you need mo re support from other people or programs to help you care for yourself or your family? No 12/16/2023 Understanding Health Concerns Answer Da te Recorded Do you need help understandi ng your or your child's healthcare needs (diagnosis, medications, plan, etc.)? No 12/16/2023 Financing Health Concerns Answer Date R ecorded In the last 12 months, was t here a time when your child needed to see a doctor or get medications or supplies but could not because of cost? No 12/16/2023 Missing School or Work Answer Date Neptali rded Did you or your child miss s chool or work because of a health problem that could have been avoided? No 12/16/2023 Child Education Answer Date Recorded Do you have concerns about y our/your child's learning or behavior in school, preschool, or daycare? No 12/16/2023 Sex and Gender Information Value Date Recorded Sex Assigned at Not on file Legal Sex Male 5:14 PM EDT Gender Identity Male 07/08/2021 10:24 AM EST Sexual Orientation Straight 07/08/2021 10 :53 AM EST documented as of this encounter Miscellaneous Notes * Telephone Encounter - Al Deleon RN - 08/15/2024 8:13 AM EDT Pharm requesting Valacyclovir. Pt 21 and inactive. documented in this encounter Plan of Treatment Not on file documented as of this encounter Visit Diagnoses Diagnosis Herpes labialis Herpes simplex without mention of complication documented in this encounter
--- OUTSIDE RECORDS SUMMARY | 2024-08-17 19:28 | XMS_ITS | Encounter Summary ---
Author Organization [facility] Address [address] [place] [phone] Phone Care Team Providers Care Production Drilling Machine Operator Name Role Phone Jazmyn Saunders MD Primary Care Provider Encounter Details Date Type Department Care Team (Late st Contact Info) Description 01/23/2010 Documentation [facility] [place] [address] [place] [address] Family Medicine, Physician [address] [place] [address] Social History Tobacco Use Types Packs/Day Years [...] on filedocumented in this encounter Care Teams Production Drilling Machine Operator Relationship Specialty Start Date End Date Jazmyn Saunders MD [address] [place] [phone] PCP - General 01/15/17 04/11/24 documented as of this encounter
--- OUTSIDE RECORDS SUMMARY | 2024-08-17 19:29 | XMS_ITS | Clinical Summary ---
Author Organization [facility] Address [address] [place] [phone] Phone Care Team Providers Care Executive Wellness Programs Director Name Role Phone Unavailable Primary Care Provider Unavailabl e Allergies Active Allergy Reactions Criticality Noted Date Comments Celery Oil 06/17/2022 Food Hives 03/18/2017 Nuts, Eggs, Seafood, celery, soy Medications hydrOXYzine 25 MG tablet 8 Active ALBUTEROL (2.5 MG/3ML) 0.083% nebulizer solutionIndicati ons:Moderate persistent asthma without complication USE 1 VIAL VIA NEBULIZER EVERY 4 HOURS NEEDED 75 mL 8 Active Additional Information Patient not taking.Reported on 12/16/2023 alclomethasone 0.05 % ointment 1 Active mometasone 0.1 % cream APPLY EXTERNALLY TO THE AFFECTED AREA TWICE DAILY 0 Active mupirocin 2 % ointmentIndicati ons:Impetigo Apply topically 2-3 ties daily as directed. 30 g 1 1 Active Additional Information Patient not taking.Reported on 09/27/2023 ProAir HFA 108 (90 Base) MCG/ACT inhalerIndicatio ns:Severe persistent asthma without complication Inhale 2 puffs every 4 (four) hours as needed for wheezing. 1 Units 2 Active Additional Information Patient not taking.Reported on 09/27/2023 azelastine 0.1 % nasal spray Administer 2 sprays into each nostril 2 (two) times a day. 2 Active triamcinolone 55 MCG/ACT nasal inhaler INSTILL 2 SPRAYS IN EACH NOSTRIL EVERY DAY 2 Active tretinoin 0.025 % cream APPLY TO FACE STARTING EVERY 2-3 NIGHTS WORKING UP TO EVERY NIGHT AT BEDTIME 2 Active doxycycline 100 MG capsule TAKE 1 CAPSULE BY MOUTH TWICE DAILY WITH FOOD AND A FULL GLASS OF WATER 2 Active Xolair 150 MG/ML solution prefilled syringe 2 Active montelukast 10 MG tabletIndication s:Chronic seasonal allergic rhinitis due to pollen Take 1 tablet (10 mg total) by mouth nightly. 90 tablet 1 3 Active Advair HFA 230-21 MCG/ACT inhalerIndicatio ns:Severe persistent asthma without complication Inhale 2 puffs 2 (two) times a day. 12 g 3 3 Active fluticasone 50 MCG/ACT nasal sprayIndications :Severe persistent asthma without complication Administer 2 sprays into each nostril daily. 1 Units 4 3 Active Additional Information Patient not taking.Reported on 12/16/2023 Spacer/Aero-Hold ing Chambers (OptiChamber Camelia) miscIndications: Severe persistent asthma without complication Use optichamber with inhalers as directed 2 each 1 3 Active Additional Information Patient not taking.Reported on 09/27/2023 cetirizine 10 MG tabletIndication s:Severe persistent asthma without complication TAKE 1 TABLET BY MOUTH EVERY DAY 90 tablet 1 3 Active triamcinolone 0.1 % creamIndications :Intrinsic atopic dermatitis Apply topically 2 (two) times a day. Mix with 16 oz of unscented cream such as Cera-Ve. 80 g 3 Active betamethasone dipropionate 0.05 % lotion APPLY TO SCALP TWICE A DAY NEEDED FLARES, DECREASE SYMPTOMS IMPROVE 4 Active hydrocortisone 2.5 % cream APPLY TO ITCHY AREAS ON FACE AND EARS TWICE A DAY NEEDED FLARES, DECREASE SYMPTOMS IMPROVE 4 Active folic acid 1 MG tablet Take 1,000 mcg by mouth once daily. 4 Active methotrexate 2.5 MG tablet Take 2.5 mg by mouth once a week. 4 Active albuterol HFA 108 (90 Base) MCG/ACT inhalerIndicatio ns:Severe persistent asthma without complication,Chr onic seasonal allergic rhinitis due to pollen Inhale 2 puffs every 4 (four) hours as needed for wheezing or shortness of breath. 1 Units 4 12/16/19 25 Active EPINEPHrine 0.3 MG/0.3ML injection syringeIndicatio ns:Multiple food allergies Inject 0.3 mL (0.3 mg total) under the skin Once PRN for anaphylaxis for up to 1 dose. 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 Severe persistent asthma without complication Overview (06/17/2022): 06/26 Followed by Pulmonology - on Advair inhaler, Singulair, Xolair. Hx of poor compliance Seen 04/15/22 - was given 1 year supply of Advair 230/21 and Montelukast and advised to continue with his city controller Assessment & Plan (11/10/2019 4:46 PM EDT): Visit with pulmonary in June and had advair dose increased and singulair dose increased as well. Has upcoming PE with Dr Saunders Intrinsic atopic dermatitis 10/05/2017 Overview (10/05/2017): Followed by Dermatology Assessment & Plan (11/10/2019 4:48 PM EDT): Long history of eczema. Rash on trunk and legs. Not well visualized as virtual visit. Pt does have PE next week with Dr Nicky Holland discussed and Triamcinolone 0.1% 80gms ordered and discussed mixing with 16oz CeraVe cream. Mom expressed understanding. To review with Dr Saunders at well visit next week. Chronic seasonal allergic rhinitis due to pollen 10/05/2017 Assessment & Plan (10/02/2019 4:35 PM EDT): Uncontrolled seasonal allergy sx and out of medications, Refills x 30 days sent while pt reconnecting with specialist Multiple food allergies 10/05/2017 Overview (12/27/2019): Allergy to nuts and seafood Resolved Problems Problem Noted Date Diagnosed Date Resolved Date Current moderate episode of major depressive disorder without prior episode 06/30/2022 4 Acne vulgaris 06/17/2022 12/16/2023 Overview (06/17/2022): Followed by Derm (Dr. Quick) - on Doxycyline Adjustment disorder with depressed mood 03/27/2022 12/16/2023 Overview (03/27/2022): Pt had an incident of extreme distress two weeks age after a break-up with his girlfriend and had suicidal ideation with a plan - was able to stop himself from carrying out this plan - denied any SI since this incident. Assessment & Plan (03/27/2022 5:55 PM EDT): Patient with mild symptoms of depression and an incident of SI within the past 2 weeks in the context of break-up with his girlfreind of 3 years. Patient will benefit from safety plan and support in managing negative thoughts and emotions. PLAN: 1. Follow up with [facility] in 1 week to check in 2. Patient goal is to remain safe and manage distress 3. Behavioral Recommendations: a. Pt to utilize safety plan as needed b. Pt to seek support from significant others as needed c. Pt to learn coping skills to manage negative feelings. Lymphadenopathy, submental 10/02/2019 0 12/16/2023 Overview (10/02/2019): suspect reactive lymphadenopathy rather than acute bacterial lymphadenitis at this time, etiology uncertain H/O removal of neck cyst 10/08/201804/2024 Overview (10/08/2018): Followed by Pedi Surg Encounters Date Type Department Care Team Description 08/14/2024 Refill [facility] - [address] [address] Caitie Hutchinson, GOVERNMENT PROPERTY INSPECTOR Herpes labialis from Last 3 Months Immunizations Immunization Administration Dates Next Due COVID-19 Pfizer, micaela-reno du, 12+ years 07/23/2021 DTaP 5 2007, 5,2003,08/03,2003 H1N1 05/16/2009 HPV Vaccine 9 Valent 10/05/2017,08/16/2015,06/14 Hep A, ped/adol 08/16/2015,05/14/2014 Hep B, ped/adol 01/04/2004,2003,2003 Hib (HbOC) 07/08/2004 Hib (PRP-T) 2003,2003,2003 IPV 2007, 4,2003,06/06 Influenza Split 04/07/2013, 2,01/21/2011,02/13 Influenza, injectable, quadrivalent 06/14/2015,1 07/15/2013 Influenza, injectable, quadr ivalent, preservative free 05/06/2022,04/21/2021,08/05/2018,03/18 Influenza, injectable, trivalent 020,02/27/2009,03/09/2008,02/22,04/28/2006,03/17/2005,06/10/2004 ,04/22/2004 MMR 04/22/2004 MMRV 2007 Meningococcal B Trumenba 12/16/2023,07/14/2022 Meningococcal Conj (Menactra) MCV4P 12/27/2019,1 07/15/2013 Pneumococcal Conjugate 07/08/2004,2003,2003,06/06 Tdap 05/14/2014 Typhoid, Parenteral 04/25/2010 Varicella 04/22/2004 Family History Medical History Relation Name Comments Asthma Father Kade Diabetes Father Kade Hyperlipidemia Father Kade Anxiety disorder Mother Ana Asthma Mother Ana Asthma Sister 1 Mallory Asthma Sister 2 Milady Relation Name Status Comments Father Kade Alive Father: Asthma Hyperlipidemia Maternal Grandfather Materna l grandfather: Diabetes mellitus Maternal Grandmother Materna l grandmother: Diabetes mellitus Mother Ana Alive Mother: Panic A ttacks Other Alive uncle: Sudden d eath/[place] under age 55 Paternal Grandmother Paterna l grandmother: Hyperlipidemia Sister 1 Mallory Alive Sister: Refl ux Sister 2 Milady Alive Social History Tobacco Use Types Packs/Day Years Used Date Smoking Tobacco: Never Smokeless Tobacco: Never Tobacco Cessation:Counseling Given: Yes Comments:Never smoker Alcohol Use Standard Drinks/Week Comments [...] Orientation Straight 07/08/2021 10 :53 AM EST Last Filed Vital Signs Vital Sign Reading Time Taken Comments Blood Pressure 124/75 12/16/2023 3:22 PM EDT Pulse 76 12/16/2023 3:22 PM EDT Temperature 36.2 ??C (97.1 ??F) 09/27/2023 2:55 PM ED T Respiratory Rate - - Oxygen Saturation 97% 10/12/2017 5:00 PM EDT Inhaled Oxygen Concentration - - Weight 97.4 kg (214 lb 12.8 oz) 12/16/2023 3:22 PM EDT Height 175.8 cm (5' 9.21 ) 12/16/2023 3:22 PM ED T Body Mass Index 31.53 12/16/2023 3:22 PM EDT Plan of Treatment Health Maintenance Due Date Last Done Comments Influenza Vaccines (#1) 2024 05/06/20, 04/21/2021, 04/10/2020, Additional history exists COVID-19 Vaccine (2023-2 5 season) 2024 07/23/2021, 10/15/2020, 09/23/2020 DTaP,Tdap,and Td Vaccines (8 - Td or Tdap) 06/10/2033 06/10/2023, 05/14/2014, 2007, Additional history exists Hepatitis B Vaccines Completed 01/04/2004, 2003, 2003 HIB Vaccines Completed 07/08/2004, 09/07, 2003, Additional history exists Pneumococcal Vaccine Completed 07/08/2004, 01/04/2004, 2003, Additional history exists IPV Vaccines Completed 2007, 12/07, 2003, Additional history exists MMR Vaccines Completed 2007, 04/22/2004 Varicella Vaccines Completed 2007, 04/22/2004 Hepatitis A Vaccines Completed 08/16/2015, 05/14/20 14 HPV Vaccines Completed 10/05/2017, 08/05, 06/14/2015 Meningococcal Vaccine Completed 12/27/2019, 014 Men B Vaccine Completed 12/16/2023, 07/14/2022
== END 2024-08-17 17:51 | disposition left against medical advice (07) ==
PROVIDERS: Emergency Provider Emergency Medicine
DX: R11.2 Nausea with vomiting, unspecified (principal)

== ENCOUNTER 2024-08-20 15:17 | Emergency (ER) | payer OTHER, SELFPAY ==
[2024-08-20 15:36] VITALS: BP 123/68; PULSE 80; RESP 16; TEMP 36.4; O2SAT 100; BMI 31.7
--- NOTE | 2024-08-20 15:41 | ED_ITS ---
HPI - Skin/Abscess/Foreign Bdy General Chief complaint: Skin/Abscess/Foreign Body Stated complaint: cold sore? Time Seen by Provider: 08/20/24 15:37 Source: patient Mode of arrival: ambulatory Limitations: no limitations History of Present Illness ED Provider: Leanne Queen PA-C HPI narrative: 19 yo male with history of oral HSV presenting with painful core sore on the lower lips since yesterday along with crusting and painful lesions on the sides of his mouth since yesterday as well. pain with opening his mouth. hx cold sores that were treated with valacyclovir in the past but he doesnt have any more medication at home. no other rashes. no fevers. MD complaint: lesion Onset (ago): day(s) (1) Location: face Severity: moderate Severity scale (1-10): 5 Quality: burning Pain Consistency: constant Relieving factors: topical medication Exacerbating factors: other (opening mouth) Context: none Associated symptoms: denies other symptoms Treatments prior to arrival: none Related Data Previous Rx's ?Medication ?Instructions ?Recorded ondansetron 4 mg disintegrating 4 mg PO Q6H PRN nausea and 08/25/21 tablet vomiting #10 tabs cyclobenzaprine 5 mg tablet 5 mg PO TID PRN neck pain 7 days 02/13/22 #21 tabs amoxicillin 875 mg-potassium 1 tab PO BID #20 tabs 08/23/22 clavulanate 125 mg tablet ondansetron 4 mg disintegrating 4 mg PO Q8H PRN nausea and 06/26/23 tablet vomiting 4 days #10 tabs mupirocin 2 % topical ointment 1 appl topical BID 10 days #22 08/20/24 grams valacyclovir 1 gram tablet 2,000 mg (2 x 1 gram) PO BID #4 08/20/24 tabs Allergies Allergy/AdvReac Type Severity Reaction Status Date / Time peanut [PEANUT] Allergy Unknown UNK Verified 08/20/24 15:38 SEAFOOD Allergy Unknown UNK Uncoded 06/05/24 07:45 SEASONAL ALLERGIES Allergy Unknown RUNNY NOSE Uncoded 06/05/24 07:45 Review of Systems Review of Systems: Yes all other systems are reviewed and are negative PMFSH Past Medical History Medical History Allergies Social History Social History Alcohol intake: never Patient Tobacco Use Status: Never used Tobacco Substance Use Type: Marijuana Advance Directives: No Advance Directives Information Provided: No Physical Exam Vital Signs: Vital Signs: Last Vital Signs Temp 97.6 F 08/20/24 15:50 Pulse 80 08/20/24 15:50 Resp 16 08/20/24 15:50 BP 123/68 08/20/24 15:50 Pulse Ox 100 08/20/24 15:50 O2 Del Method Room Air 08/20/24 15:50 BMI result Body Mass Index 31.7 Appearance: Alert. Oriented X3. No acute distress. HEENT: ears, eyes, nose all normal to inspection. lips with a small blister on the lower lip, crusting yellowing of the bilateral angles of the mouth. normal tongue, normal teeth CVS: Normal heart rate and rhythm. Pulses normal. Respiratory: No respiratory distress. Skin: Skin warm and dry. Normal skin color. Normal skin turgor. No rashes. Extremities: normal inspection x4, no joint swelling Neuro: Oriented X 3. grossly normal, nonfocal Medical Decision Making Medical Decision Making MDM Narrative: 19 yo male presenting with cold sore and crusting yellow skin at the angles of the mouth c/w angular chelitis. likely staph will treat with valacyclovir and topical mupirocin stable for d/c home Differential Diagnosis Differential Diagnoses: The differential diagnosis associated with the presentation includes oral HSV, angular chelitis, fungal infection, staph infection Prescription Management I considered prescription management with: Pain Medication, Antiviral and Antibiotic Critical Care Time Critical Care Time Critical Care Time: No Discharge Plan Discharge Clinical Impression: Cold sore, Angular cheilitis Patient Disposition: Home, Self-Care Instructions: Oral Herpes Simplex Virus Infections (ED) Additional Instructions: take the antiviral tonight and tomorrow morning use the ointment on the sides of your mouth for 10 days follow up with your doctor as needed. If you develop new or worsening symptoms call 911 or come back to the ER for further evaluation. Prescriptions: New mupirocin 2 % ointment 1 appl topical BID 10 Days Qty: 22 0RF valacyclovir 1 gram tablet 2,000 mg PO BID Qty: 4 1RF No Action ondansetron 4 mg tablet,disintegrating 4 mg PO Q6H PRN (Reason: nausea and vomiting) Qty: 10 0RF cyclobenzaprine 5 mg tablet 5 mg PO TID PRN (Reason: neck pain) 7 Days Qty: 21 0RF amoxicillin-pot clavulanate 875-125 mg tablet 1 tab PO BID Qty: 20 0RF ondansetron 4 mg tablet,disintegrating 4 mg PO Q8H PRN (Reason: nausea and vomiting) 4 Days Qty: 10 0RF Interventions: ED Discharge Assessment Last Done: 08/20/24 15:50 Discharge Date/Time: 08/20/24 15:51 Print Language: Hungarian
[2024-08-20 15:50] VITALS: BP 123/68; PULSE 80; RESP 16; TEMP 36.4; O2SAT 100
== END 2024-08-20 15:51 | disposition home or self-care (01) ==
LOC: HO.ED 15:44
PROVIDERS: Emergency Provider Emergency Medicine
DX: B00.1 Herpesviral vesicular dermatitis (principal); K13.0 Diseases of lips
CPT/HCPCS: 99282; 99283

== ENCOUNTER 2025-06-06 11:27 | Emergency (ER) | payer OTHER, SELFPAY ==
[2025-06-06 11:50] VITALS: BP 120/78; PULSE 96; RESP 18; TEMP 36.7; O2SAT 99; BMI 33.6
--- NOTE | 2025-06-06 11:51 | ED_ITS ---
HPI - Skin/Abscess/Foreign Bdy General Chief complaint: Skin/Abscess/Foreign Body Stated complaint: facial infection Time Seen by Provider: 06/06/25 11:55 Source: patient, RN notes reviewed and old records reviewed Mode of arrival: ambulatory History of Present Illness ED Provider: Payton Malave PA-C HPI narrative: 20-year-old male with a past medical history of oral HSV, presenting to the ED complaining of painful crusted area to lower lip/chin x this morning. Admits to similar symptoms in the past - which he was treated in our ED for. States he feels burning/tingling to lips. Denies open wound/lesions, rash to other areas, difficulty/inability to swallow, fever Related Data Previous Rx's ?Medication ?Instructions ?Recorded ondansetron 4 mg disintegrating 4 mg PO Q6H PRN nausea and 08/25/21 tablet vomiting #10 tabs cyclobenzaprine 5 mg tablet 5 mg PO TID PRN neck pain 7 days 02/13/22 #21 tabs amoxicillin 875 mg-potassium 1 tab PO BID #20 tabs clavulanate 125 mg tablet ondansetron 4 mg disintegrating 4 mg PO Q8H PRN nausea and 06/26/23 tablet vomiting 4 days #10 tabs mupirocin 2 % topical ointment 1 appl topical BID 10 d ays #22 08/20/24 grams valacyclovir 1 gram tablet 2,000 mg (2 x 1 gram) PO BI D #4 08/20/24 tabs mupirocin 2 % topical ointment 1 appl topical BID 7 da ys #15 grams 06/06/25 (Centany) valacyclovir 500 mg tablet 500 mg PO BID 3 days #6 tab s 06/06/25 (Valtrex) Allergies Allergy/AdvReac Type Severity Reaction Status Date / Time peanut (PEANUT) Allergy Unknown UNK Verified 06/06/25 11:52 SEAFOOD Allergy Unknown UNK Uncoded 06/05/24 07:45 SEASONAL ALLERGIES Allergy Unknown RUNNY NOSE Uncoded 06/05/24 07:45 Review of Systems Review of Systems: Yes all other systems are reviewed and are negative Constitutional: Constitutional: Reports as per [facility] Past Medical History Attestation statement: The following information was validated with the patient. Source: old records reviewed Medical History Allergies Social History Social History Alcohol intake: never Patient Tobacco Use Status: Never used Tobacco Substance Use Type: Marijuana Advance Directives: No Advance Directives Information Provided: Yes Physical Exam Vital Signs: Vital Signs: Last Vital Signs Temp 98.1 F 06/06/25 12:14 Pulse 96 06/06/25 12:14 Resp 18 06/06/25 12:14 BP 120/78 06/06/25 12:14 Pulse Ox 99 06/06/25 12:14 O2 Del Method Room Air 06/06/25 12:14 BMI result Body Mass Index 33.6 Const: General: cooperative, healthy appearing and no acute distress O rientation/consciousness: patient oriented x3 Limitations: no limitations HEENT: Other: + small honey-crusted area noted to chin . No lesions to lips. No oral swelling. No open wounds. No fluctuance/induration Head: Yes normal to inspection and Yes atraumatic Ears: hearing grossly normal bilaterally General nose exam: Normal external nose present Mouth: Normal oral and palatal mucosa present, no drooling and no muffled voice Throat: Yes posterior oropharynx normal, Yes uvula midline, No peritonsillar mass, No uvula laterally displaced and No uvular edema Eyes: General: appearance normal, both eyes and all related structures EOM: EOMs intact bilaterally Neck: Neck: Yes normal visual inspection and Yes no meningeal signs Resp: Effort & Inspection: normal respiratory effort and no respiratory distress Cardio: Rate: regular rate Skin: Wounds: no wounds Neuro: General: patient oriented x3, tone normal and no meningeal signs Cranial nerves: Yes CN's II-XII intact bilaterally Gait exam (Neuro): Normal gait present Extrem: General: Yes normal to inspection Medical Decision Making Medical Decision Making MDM Narrative: 20-year-old male with a past medical history of oral HSV, presenting to the ED complaining of painful crusted area to lower lip/chin x this morning. On exam vital signs stable, NAD, nontoxic appearing, physical exam as noted above. Concern for impetigo and early cold sore/oral HSV. No evidence of cellulitis. No evidence of SJS/TENs or respiratory compromise. Plan: Topical mupirocin, p.o. Valtrex Please refer to course for remaining clinical decision making, interpretation of labs/imaging results, and discussions with consultants and/or family members. Results discussed with patient including worrisome signs and symptoms and strict return precautions, and when to return to the emergency department. They verbalized understanding and feel safe for discharge at this time. Differential Diagnosis Differential Diagnoses: The differential diagnosis associated with the presentation includes As above External Record Review External record reviewed: Inpatient record, Office record, Outpatient record, Prior outpatient labs, Prior outpatient radiology, Primary care record and Outside ED record Tests considered The following testing was considered but not selected: As above Prescription Management I considered prescription management with: Antiviral and Antibiotic Chronic Conditions Patient?s care impacted by: Other Social Determinants Patient?s care significantly limited by Social Determinants of Health including: Other Social Determinant of Health Discharge Plan Discharge Clinical Impression: Impetigo, Cold sore Patient Disposition: Home, Self-Care Instructions: Impetigo (DC) Additional Instructions: Apply topical ointment on crusted area as prescribed Take Valtrex as prescribed until completion Follow up with your primary care doctor If her symptoms persist or worsen, you are unable to eat or drink, have fever/chills or drainage from area return to the ED Prescriptions: New valacyclovir [Valtrex] 500 mg tablet 500 mg PO BID 3 Days Qty: 6 0RF mupirocin [Centany] 2 % ointment 1 appl topical BID 7 Days Qty: 15 0RF No Action ondansetron 4 mg tablet,disintegrating 4 mg PO Q6H PRN (Reason: nausea and vomiting) Qty: 10 0RF cyclobenzaprine 5 mg tablet 5 mg PO TID PRN (Reason: neck pain) 7 Days Qty: 21 0RF amoxicillin-pot clavulanate 875-125 mg tablet 1 tab PO BID Qty: 20 0RF ondansetron 4 mg tablet,disintegrating 4 mg PO Q8H PRN (Reason: nausea and vomiting) 4 Days Qty: 10 0RF mupirocin 2 % ointment 1 appl topical BID 10 Days Qty: 22 0RF valacyclovir 1 gram tablet 2,000 mg PO BID Qty: 4 1RF Referrals: Physician,None [Primary Care Provider, Medical] - 1 week Interventions: ED Discharge Assessment Last Done: 06/06/25 12:14 Discharge Date/Time: 06/06/25 12:15 Print Language: [place] Rican
[2025-06-06 12:14] VITALS: BP 120/78; PULSE 96; RESP 18; TEMP 36.7; O2SAT 99
--- OUTSIDE RECORDS SUMMARY | 2025-06-06 13:45 | XMS_ITS | Encounter Summary ---
Author Organization [facility] Address [address] [place] [phone] Phone Care Team Providers Care Naturalist Name Role Phone Jazmyn Saunders MD Primary Care Provider Encounter Details Date Type Department Care Team (Late st Contact Info) Description 07/03/2016 [place]ation [facility] [place] [address] [place] [address] Family Medicine, Physician [address] [place] [address] Social History Tobacco Use Types Packs/Day Years [...] on filedocumented in this encounter Care Teams Naturalist Relationship Specialty Start Date End Date Jazmyn Saunders MD [address] [place] [id number] PCP - General 01/15/17 04/11/24 documented as of this encounter
--- OUTSIDE RECORDS SUMMARY | 2025-06-06 13:45 | XMS_ITS | Encounter Summary ---
Author Organization [facility] Address [address] [place] [address] Phone Care Team Providers Care Hemstitching Machine Operator Name Role Phone Jazmyn Saunders MD Primary Care Provider [phone] Reason for Visit * Reason Comments Med Refill Encounter Details Date Type Department Care Team (Late st Contact Info) Description 04/03/2020 Refill [facility] [place] [address] [place] [address] Berny Mata MD [address] [place] [address] Lymphadenopathy, submental; Chronic seasonal allergic rhinitis due [...] pollen documented in this encounter Care Teams Hemstitching Machine Operator Relationship Specialty Start Date End Date Jazmyn Saunders MD [address] [place] [address] DARREL Farmer [id number] PCP - General 01/15/17 04/11/24 documented as of this encounter
--- OUTSIDE RECORDS SUMMARY | 2025-06-06 13:45 | XMS_ITS | Encounter Summary ---
Author Organization [facility] Address [address] [place] [phone] Phone Care Team Providers Care College Director Name Role Phone Jazmyn Saunders MD Primary Care Provider [phone] Encounter Details Date Type Department Care Team (Late st Contact Info) Description 10/27/2016 [place] [facility] [place] [address] [place] [address] Family Medicine, Physician [address] [place] [address] Social History Tobacco Use Types Packs/Day Years [...] on filedocumented in this encounter Care Teams College Director Relationship Specialty Start Date End Date Jazmyn Saunders MD [address] [place] [id number] PCP - General 01/15/17 04/11/24 documented as of this encounter
--- OUTSIDE RECORDS SUMMARY | 2025-06-06 13:45 | XMS_ITS | Encounter Summary ---
Author Organization [facility] Address [address] [place] [phone] Phone Care Team Providers Care Fishing Floats Assembler Name Role Phone Jazmyn Saunders MD Primary Care Provider Encounter Details Date Type Department Care Team (Late st Contact Info) Description 08/27/2010 Documentation [facility] [place] [address] [place] [address] Family Medicine, Physician [address] [place] [address] Social History Tobacco Use Types Packs/Day Years [...] on filedocumented in this encounter Care Teams Fishing Floats Assembler Relationship Specialty Start Date End Date Jazmyn Saunders MD [address] [place] [address] PCP - General 01/15/17 04/11/24 documented as of this encounter
--- OUTSIDE RECORDS SUMMARY | 2025-06-06 13:45 | XMS_ITS | Encounter Summary ---
Author Organization [facility] Address [address] [place] [address] Phone Care Team Providers Care Pin Drafting Machine Tender Name Role Phone Jazmyn Saunders MD Primary Care Provider [phone] Encounter Details Date Type Department Care Team (Late st Contact Info) Description 01/23/2016 Documentation [facility] [place] [address] [place] [address] Family Medicine, Physician [address] [place] [address] Social History Tobacco Use Types Packs/Day Years [...] on filedocumented in this encounter Care Teams Pin Drafting Machine Tender Relationship Specialty Start Date End Date Jazmyn Saunders MD [address] [place] [address] PCP - General 01/15/17 04/11/24 documented as of this encounter
--- OUTSIDE RECORDS SUMMARY | 2025-06-06 13:45 | XMS_ITS | Encounter Summary ---
Author Organization [facility] Address [address] [place] [address] Phone Care Team Providers Care Coating And Embossing Unit Operator Name Role Phone Jazmyn Saunders MD Primary Care Provider Encounter Details Date Type Department Care Team (Late st Contact Info) Description 03/26/2010 Documentation [facility] [place] [address] [place] [address] Family Medicine, Physician [address] [place] [address] Social History Tobacco Use Types Packs/Day Years [...] on filedocumented in this encounter Care Teams Coating And Embossing Unit Operator Relationship Specialty Start Date End Date Jazmyn Saunders MD [address] [place] [address] PCP - General 01/15/17 04/11/24 documented as of this encounter
--- OUTSIDE RECORDS SUMMARY | 2025-06-06 13:45 | XMS_ITS | Encounter Summary ---
Author Organization [facility] Address [address] [place] [address] Phone Care Team Providers Care Drapery Seamstress Name Role Phone Jazmyn Saunders MD Primary Care Provider Encounter Details Date Type Department Care Team (Late st Contact Info) Description 04/09/2010 Documentation [facility] [place] [address] [place] [address] Family Medicine, Physician [address] [place] [address] Social History Tobacco Use Types Packs/Day Years [...] on filedocumented in this encounter Care Teams Drapery Seamstress Relationship Specialty Start Date End Date Jazmyn Saunders MD [address] [place] [phone] PCP - General 01/15/17 04/11/24 documented as of this encounter
--- OUTSIDE RECORDS SUMMARY | 2025-06-06 13:45 | XMS_ITS | Clinical Summary ---
Author Organization [facility] Address [address] [place] [address] Phone Care Team Providers Care Contract Administration Coordinator Name Role Phone Unavailable Primary Care Provider [...] or shortness of breath. 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 PLAN: 1. Follow up with [facility] in 1 week to check in 2. [...] 10/08/201804/2024 Overview (10/08/2018): Followed by [facility] Immunizations Immunization Administration Dates Next Due COVID-19 Pfizer, micaela-sucros e, 12+ years 07/23/2021 DTaP 5 2007, 5,2003,08/03,2003 [...] A ttacks Other Alive uncle: Sudden d eath/[place] under age 55 Paternal Grandmother Paterna l [...] 74 12/16/2023 3:22 PM EDT Temperature 36.2 C (97.1 F) 09/27/2023 2:55 PM EDT Respiratory Rate - - Oxygen Saturation 97% 10/12/2017 5:00 PM EDT Inhaled Oxygen Concentration - - Weight 97.4 kg (214 lb 12.8 oz) 12/16/2023 3:22 PM EDT Height 175.8 cm (5' 9.21 ) 12/16/2023 3:22 PM ED T Body Mass Index 31.53 12/16/2023 3:22 PM EDT Plan of Treatment Health Maintenance Due Date Last Done Comments Influenza Vaccines (#1) 2025 05/06/20, 04/21/2021, 04/10/2020, Additional history exists COVID-19 Vaccine (2024-2 6 season) 2025 07/23/2021, 10/15/2020, 09/23/2020 DTaP,Tdap,and Td Vaccines (8 [...]
--- OUTSIDE RECORDS SUMMARY | 2025-06-06 13:45 | XMS_ITS | Encounter Summary ---
Author Organization [facility] Address [address] [place] [address] Phone Care Team Providers Care General Production Manager Name Role Phone Jazmyn Saunders MD Primary Care Provider Encounter Details Date Type Department Care Team (Late st Contact Info) Description 01/23/2010 Documentation [facility] [place] [address] [place] [address] Family Medicine, Physician [address] [place] [address] Social History Tobacco Use Types Packs/Day Years [...] on filedocumented in this encounter Care Teams General Production Manager Relationship Specialty Start Date End Date Jazmyn Saunders MD [address] [place] [phone] PCP - General 01/15/17 04/11/24 documented as of this encounter
--- OUTSIDE RECORDS SUMMARY | 2025-06-06 13:45 | XMS_ITS | Encounter Summary ---
Author Organization [facility] Address [address] [place] [address] Phone Care Team Providers Care Link Wire Fabric Machine Tender Name Role Phone Jazmyn Saunders MD Primary Care Provider Encounter Details Date Type Department Care Team (Late st Contact Info) Description 08/09/2010 Documentation [facility] [place] [address] [place] [address] Family Medicine, Physician [address] [place] [address] Social History Tobacco Use Types Packs/Day Years [...] on filedocumented in this encounter Care Teams Link Wire Fabric Machine Tender Relationship Specialty Start Date End Date Jazmyn Saunders MD [address] [place] [address] PCP - General 01/15/17 04/11/24 documented as of this encounter
--- OUTSIDE RECORDS SUMMARY | 2025-06-06 13:45 | XMS_ITS | Encounter Summary ---
Author Organization [facility] Address [address] [place] [address] Phone Care Team Providers Care Chief Deputy Coroner Name Role Phone Jazmyn Saunders MD Primary Care Provider [phone] Encounter Details Date Type Department Care Team (Late st Contact Info) Description 01/21/2017 Conversion Encounter [facility] [place] [address] [place] [address] Social History Tobacco Use Types Packs/Day Years [...] on filedocumented in this encounter Care Teams Chief Deputy Coroner Relationship Specialty Start Date End Date Jazmyn Saunders MD [address] [place] [address] PCP - General 01/15/17 04/11/24 documented as of this encounter
--- OUTSIDE RECORDS SUMMARY | 2025-06-06 13:45 | XMS_ITS | Encounter Summary ---
Author Organization [facility] Address [address] [place] [address] Phone Care Team Providers Care Energy Scheduler Name Role Phone Jazmyn Saunders MD Primary Care Provider Encounter Details Date Type Department Care Team (Late st Contact Info) Description 08/24/2016 Documentation [facility] [place] [address] [place] [address] Family Medicine, Physician [address] [place] [address] Social History Tobacco Use Types Packs/Day Years [...] on filedocumented in this encounter Care Teams Energy Scheduler Relationship Specialty Start Date End Date Jazmyn Saunders MD [address] [place] [address] PCP - General 01/15/17 04/11/24 documented as of this encounter
--- OUTSIDE RECORDS SUMMARY | 2025-06-06 13:45 | XMS_ITS | Encounter Summary ---
Author Organization [facility] Address [address] [place] [address] Phone Care Team Providers Care Soaker Helper Name Role Phone Jazmyn Saunders MD Primary Care Provider [phone] Encounter Details Date Type Department Care Team (Late st Contact Info) Description 10/24/2013 Documentation [facility] [place] [address] [place] [address] Family Medicine, Physician [address] [place] [address] Social History Tobacco Use Types Packs/Day Years [...] on filedocumented in this encounter Care Teams Soaker Helper Relationship Specialty Start Date End Date Jazmyn Saunders MD [address] [place] [address] PCP - General 01/15/17 04/11/24 documented as of this encounter
== END 2025-06-06 12:15 | disposition home or self-care (01) ==
PROVIDERS: Emergency Provider Emergency Medicine Emergency Medical Services
DX: L01.00 Impetigo, unspecified (principal); B00.1 Herpesviral vesicular dermatitis
CPT/HCPCS: 99282; 99283